=== PATIENT | male | born 1980 | race Hispanic/Latino ===

== ENCOUNTER 2018-02-28 22:16 | Emergency (ER) | payer MEDICARE ==
[2018-02-28 22:39] VITALS: TEMP 98.8
[2018-02-28 22:54] VITALS: BP 137/77; PULSE 71; RESP 18; O2SAT 99
--- NOTE | 2018-02-28 22:56 | ED PDOC ---
Arrival/HPI <MyiaBrett - Last Filed: 02/28/18 23:30> - General Historian: Patient <Nando Bowles A - Last Filed: 03/01/18 01:05> - General Chief Complaint: ENT Problem Time Seen by Provider: 02/28/18 22:23 - History of Present Illness Narrative History of Present Illness (Text): 02/28/18 22:52 37yo male with no PMhx who present with complaint of productive cough for 3weeks with intermittent sore throat and weakness. States he stopped taking theraflu because of the persistent cough. +Subjective fever. Admits to SOB with the cough. Denies sick contact, chest pain, diaphoresis, travel, nausea, vomiting, abdominal pain ,any other complaint. (Nando Bowles A) Past Medical History - Provider Review Nursing Documentation Reviewed: Yes - Psychiatric Hx Substance Use: No <Nando Bowles A - Last Filed: 03/01/18 01:05> Family/Social History - Physician Review Nursing Documentation Reviewed: Yes Family/Social History: Unknown Family HX Smoking Status: E cigs Hx Alcohol Use: No Hx Substance Use: No <Nando Bowles A - Last Filed: 03/01/18 01:05> Allergies/Home Meds <MiyaBrett - Last Filed: 02/28/18 23:30> <Nando Bowles A - Last Filed: 03/01/18 01:05> Allergies/Adverse Reactions: Allergies No Known Allergies Allergy (Verified 02/28/18 22:35) Review of Systems - Physician Review All systems were reviewed & negative as marked: Yes - Review of Systems Constitutional: Normal Eyes: Normal ENT: Sore Throat Respiratory: SOB, Cough. absent: Sputum, Wheezing Cardiovascular: Normal Gastrointestinal: Normal Genitourinary Male: Normal Musculoskeletal: Normal Skin: Normal Neurological: Normal Endocrine: Normal Hemo/Lymphatic: Normal Psychiatric: Normal <Nando Bowles A - Last Filed: 03/01/18 01:05> Physical Exam Vital Signs Reviewed: Yes Temperature: Afebrile Blood Pressure: Normal Pulse: Regular Respiratory Rate: Normal Appearance: Positive for: Well-Appearing, Non-Toxic, Comfortable Pain Distress: None Mental Status: Positive for: Alert and Oriented X 3 - Systems Exam Head: Present: Atraumatic, Normocephalic Pupils: Present: PERRL Extroacular Muscles: Present: EOMI Conjunctiva: Present: Normal Mouth: Present: Moist Mucous Membranes Pharnyx: Present: Normal. No: ERYTHEMA, EXUDATE, TONSILS ENLARGED, Peritonsilar Swelling, Uvular Deviation, Muffled/Hoarse Voice, Strider Neck: Present: Normal Range of Motion Respiratory/Chest: Present: Clear to Auscultation, Good Air Exchange. No: Respiratory Distress, Accessory Muscle Use, Wheezes, Decreased Breath Sounds, Rales, Retracting, Rhonchi, Tachypneic Cardiovascular: Present: Regular Rate and Rhythm, Normal S1, S2. No: Murmurs Abdomen: No: Tenderness, Distention, Peritoneal Signs Back: Present: Normal Inspection Upper Extremity: Present: Normal Inspection. No: Cyanosis, Edema Lower Extremity: Present: Normal Inspection. No: Edema Neurological: Present: GCS=15, CN II-XII Intact, Speech Normal Skin: Present: Warm, Dry, Normal Color. No: Rashes Psychiatric: Present: Alert, Oriented x 3, Normal Insight, Normal Concentration <Nando Bowles A - Last Filed: 03/01/18 01:05> Vital Signs Temp Pulse Resp BP Pulse Ox 02/28/18 22:35 98.8 F 02/28/18 22:17 98.8 F 71 18 137/77 99 Medical Decision Making <Brett Holliday - Last Filed: 02/28/18 23:30> <Nando Bowles - Last Filed: 03/01/18 01:05> ED Course and Treatment: 03/01/18 01:03 Pt in ED for stated history. He was hemodynamically stable in ED. His lung is CTA b/l. CXR NAD. hyperinflated Rapid flu and strep was negative PT was treated with Zpack and antitussive. (JelenaHappiness A) - Lab Interpretations Lab Results: Lab Results 02/28/18 23:55: Grp A Beta Strep Ag Negative 02/28/18 23:55: Influenza Typ A,B (EIA) Negative for flu a/b - RAD Interpretation Radiology Orders: 02/28/18 22:45 CHEST TWO VIEWS (PA/LAT) [RAD] Stat - Medication Orders Current Medication Orders: Discontinued Medications Azithromycin (Zithromax) 500 mg PO STAT STA PRN Reason: Protocol Stop: 03/01/18 00:51 Guaifenesin/Dextromethorphan (Robitussin Dm) 10 ml PO ONCE STA Stop: 03/01/18 00:51 - PA / STRAIGHT EDGER / Resident Statement AMOS has reviewed & agrees with the documentation as recorded. [facility]OS has examined the patient and agrees with the treatment plan. <Brett Holliday - Last Filed: 02/28/18 23:30> Disposition/Present on Arrival <Brett Holliday - Last Filed: 02/28/18 23:30> - Present on Arrival Any Indicators Present on Arrival: No History of DVT/PE: No History of Uncontrolled Diabetes: No Urinary Catheter: No History of Decub. Ulcer: No History Surgical Site Infection Following: None - Disposition Have Diagnosis and Disposition been Completed?: Yes Disposition Time: 00:55 Patient Plan: Discharge <Nando Bowles - Last Filed: 03/01/18 01:05> - Disposition Diagnosis: URI (upper respiratory infection) Disposition: HOME/ ROUTINE Patient Problems: Current Active Problems Problem Status Onset URI (upper respiratory infection) Acute Condition: STABLE Discharge Instructions (ExitCare): Viral Upper Respiratory Infection, Adult (DC ) Additional Instructions: Take medication as directed Follow up with your Doctor Return to ED for any new symptoms Prescriptions: Albuterol HFA [Ventolin HFA 90 mcg/actuation (8 g)] 2 puff IH [id number] #1 puff Azithromycin [Zithromax] 250 mg PO DAILY #4 tab Benzonatate [Tessalon Perle] 100 mg PO TID #20 capsule Referrals: PCP,NO [Primary Care Provider] - Follow up with primary [facility] [place] - Follow up with primary Forms: [employer] (Ukrainian)
[2018-03-01] MEDS ORDERED: guaiFENesin DM 200 mg-20 mg/10 ml UD PO STA (00:50)
== END 2018-03-01 01:11 | disposition home or self-care (01) ==
LOC: ED 22:16
DX: J06.9 Acute upper respiratory infection, unspecified (principal); F17.290 Nicotine dependence, other tobacco product, uncomplicated